=== PATIENT | female | born 1985 | race Caucasian/White ===

== ENCOUNTER 2022-11-21 14:33 | Emergency (ER) | payer SELFPAY ==
--- OUTSIDE RECORDS SUMMARY | 2022-11-21 14:36 | XMS REPORT | Continuity of Care Document ---
:1985 Author Organization [facility] t Address [address] [place] [place] [address] Care Team Providers Name Role Phone Asked, No Pcp Primary Care Physician Unavailable MERNA HYATT Attending Clinician Unavailable JOSÉ MIGUEL MÉNDEZ Attending Clinician Unavailable THEO MARQUEZ Attending Clinician Unavailable DR ANGELITA BHATTI Attending Clinician Unavailable DR ANGELITA BHATTI Admitting Clinician Unavailable Payers Payer Name Policy Type Policy Number Effective Date Expiration Date S ource 1000 [id number] 1959 00:00:00 Problems Condition Condition Condition Status Onset Resolution Last Treating Co mments Source Name Details Category Date Date Treatment Clinician Date Unspecifie Unspecifie Disease Active M ethodi d mood d mood 04-01 (affective (affective 00:00: Ho spita ) disorder ) disorder 00 l Alcohol Alcohol Disease Active Methodi use use 04-01 st disorder, disorder, 00:00: Hosp liestte severe, in severe, in 00 l controlled controlled environmen environmen t t Cocaine Cocaine Disease Active Methodi use use 04-01 disorder, disorder, 00:00: Hosp lisette moderate, moderate, 00 l dependence dependence PTSD PTSD Disease Active Methodi (post-trau (post-trau - st matic matic 00:00: Hospita stress stress 00 l disorder) disorder) Allergies, Adverse Reactions, Alerts Allergy Allergy Status Severity Reaction(s) Onset Inactive Treating Comm ents Source Name Type Date Date Clinician Mushroom Propensi Active Method i ty to 04-02 st adverse 00:00: Hospita reaction 00 l s to drug Aspirin Propensi Active "gives me Meth madhav ty to 04-[address] adverse 00:00: migraine Hospita reaction 00 headache l s to drug Azithrom Propensi Active "Makes me Met hodi ycin ty to 04-[address] adverse 00:00: sick the Hospita reaction 00 mycins" l s to drug Sulfa DA Active Unknown [facility] (Sulfona 10-25 Medical mides) 00:00: Center 00 Erythrom DA Active Unknown [facility] ycin 10-25 [facility] 00:00: Center 00 Social History Social Habit Start Date Stop Date Quantity Comments Source Gender identity [facility] Sexual orientation [facility] History of tobacco Smokes tobacco [facility] use daily Hospital History of Social 2018-11-06 2018-11-[address] function 00:00:00 00:00:00 Hospital Alcohol intake 2018-04-20 2018-04-20 Current drinker [facility] 00:00:00 00:00:00 of alcohol Hospital (finding) Tobacco use and 2018-04-01 2018-04-01 User of [facility] exposure 00:00:00 00:00:00 smokeless Hospital tobacco Sex Assigned At [birth year] [facility] 00:00:00 00:00:00 Hospital Smoking Status Start Date Stop Date Source Smokes tobacco daily 2018-04-01 00:00:00 [facility] Medications Ordered Filled Start Stop Current Ordering Indication Dosage Frequency Signature Comments Components Source Medication Medication Date Date Medication? Clinician (SIG) Name Name naltrexone Yes 50mg QD Take 50 mg M ethodi (DEPADE) 50 2-[address] mg tablet 18:47: nightly. Hosp lisette 36 l gabapentin Yes 600mg [id number] Take 600 [facility] (NEURONTIN) 2-12 [id number] mg by s t 300 mg 18:47: 3D mouth 3 Hospita capsule 36 (three) l times a day. Vital Signs Vital Name Observation Time Observation Value Comments Source Height 2021-04-30 10:42:00 162.56 CM Weight 2021-04-30 10:42:00 65.77 KG Procedures This patient has no known procedures. Plan of Care Planned Activity Planned Date Details Comments Source Future Scheduled 2022-11-21 COVID-19 VACCINE [facility] Test 08:31:20 (#1) [code = COVID-19 VACCINE (#1)] Future Scheduled 2022-11-21 Screening for [facility] Test 08:31:20 malignant neoplasm of cervix (procedure) [code = 256472481] Future Scheduled 2022-11-21 INFLUENZA VACCINE [facility] Test 08:31:20 (#1) [code = INFLUENZA VACCINE (#1)] Encounters Start End Encounter Admission Attending Care Care Encounter Source Date/Time Date/Time Type Type Clinicians Facility Department ID 2022-11-15 Inpatient TEXANA TEXANA [id number] [place] 08:48:47 [id number] [place] 2022 Inpatient TEXANA TEXANA [id number] [place] 12:20:15 [id number] [place] 2022-10-07 Inpatient TEXANA TEXANA [id number] [place] 11:33:38 [id number] [place] 2022-10-05 Inpatient TEXANA TEXANA [id number] [place] 08:50:12 [id number] [place] 2022-04-05 Outpatient [facility] [id number] [place] 14:31:[id number] [place] [address] 2022-04-05 Outpatient [facility] [id number] [place] 14:28:[id number] [place] [address] 2022-11-11 2022-11-11 Outpatient SFA SFA [id number] 11:22:07 11:22:07 [id number] F Mike 2022-08-04 2022-08-04 Emergency E BAL HYATT [facility] [id number] [facility] 10:16:00 15:26:00 MERNA 2022-04-13 2022-04-13 Outpatient DEV [facility] [id number] [place] 13:15:00 13:15:00 [facility] 2022-04-05 2022-04-05 Emergency E THEO MARQUEZ [facility] [id number] [place] 10:31:00 14:21:00 hardik dye 2021-04-30 2021-04-30 Emergency E BHATTI, ANGELITA [facility] ECC [id number] [place] 10:39:00 11:18:00 Medica l Center 2019-03-31 2019-03-31 Emergency E MHKM [facility]KM [id number] [place] 18:14:00 18:14:00 l Donato Warren [facility] 2019-01-27 2019-01-27 Emergency E MHSE MHSE [id number] 14:17:00 14:17:00 [facility] 2018-01-25 2018-01-25 Emergency [facility] [id number] [address] [place] [address] 20:11:36 20:11:36 Health 2017-11-07 2017-11-07 Emergency E ANGELITA BHATTI [facility] WWE[facility] [id number] [facility] 10:24:00 10:55:00 Medica l Center Results This patient has no known results.
--- NOTE | 2022-11-21 15:37 | RAD REPORT ---
EXAM DESCRIPTION: RAD - Knee Right 3 View - 11/21/2022 3:23 pm CLINICAL HISTORY: right knee injury COMPARISON: No comparisons FINDINGS/IMPRESSION: No acute fracture. No malalignment. No significant focal degenerative changes.
[2022-11-21] MEDS ORDERED: CYCLOBENZAPRINE 10 MG TAB ONE (15:50)
[2022-11-21] MEDS ORDERED: KETOROLAC 30 MG/ML INJ ONE (15:51)
[2022-11-21] MEDS ORDERED: FAMOTIDINE 20 MG/2 ML VIAL IV ONE (15:55)
[2022-11-21] MEDS ORDERED: MAGNES/ALUMIN/SIMET 30ML UCUP ONE (15:55)
--- NOTE | 2022-11-21 15:55 | EDPHYS ---
Physician Documentation [facility] Name: Iliana Doherty Age: 37 yrs Sex: Female : 1985 Arrival Date: 11/21/2022 Time: 14:33 Bed 2 Private MD: ED Physician Soto Cuevas HPI: 11/21 14:43 This 37 yrs old Female presents to ER via Unassigned with complaints of Knee sp4 Pain. 16:02 37-year-old female with history of prior right knee injury prior right ligamentous tear sp4 in the right knee presents with acute worsening of right knee pain. Patient is currently at [facility] rehab for alcohol use. Patient states that she was playing basketball yesterday and developed worsening right knee pain. Patient has moderate pain on ambulation. Pain is improved with rest. Historical: - Allergies: 15:10 No Known Allergies; ll1 - PMHx: 15:10 borderline BP; ll1 - PSHx: 15:10 ulnar nerve SX; Appendectomy; ll1 - Immunization history:: Adult Immunizations up to date. - Social history:: Smoking status: Patient reports the use of cigarette tobacco products, smokes one-half pack cigarettes per day. - Family history:: not pertinent. ROS: 16:02 Constitutional: Negative for fever, chills, and weight loss, MS/Extremity: Positive for sp4 right knee injury and pain, positive pain on ambulation of the right knee 16:02 All other systems are negative. Exam: 16:02 Constitutional: This is a well developed, well nourished patient who is awake, alert, sp4 and in no acute distress. Head/Face: Normocephalic, atraumatic. Eyes: Pupils equal round and reactive to light, extra-ocular motions intact. Lids and lashes normal. Conjunctiva and sclera are not injected. Cornea within normal limits. Periorbital areas with no swelling, redness, or edema. ENT: Nares patent. No nasal discharge, no septal abnormalities noted. Tympanic membranes are normal and external auditory canals are clear. Oropharynx with no redness, swelling, or masses, exudates, or evidence of obstruction, uvula midline. Mucous membranes moist. Neck: Trachea midline, no thyromegaly or masses palpated, and no cervical lymphadenopathy. Supple, full range of motion without nuchal rigidity, or vertebral point tenderness. Chest/axilla: Normal chest wall appearance and motion. Nontender with no deformity. No lesions are appreciated. Cardiovascular: Regular rate and rhythm with a normal S1 and S2. No gallops, murmurs, or rubs. Normal PMI, no JVD. No pulse deficits. Respiratory: Lungs have equal breath sounds bilaterally, clear to auscultation and percussion. No rales, rhonchi or wheezes noted. No increased work of breathing, no retractions or nasal flaring. Abdomen/GI: Soft, non-tender, with normal bowel sounds. No distension or tympany. No guarding or rebound. No evidence of tenderness throughout. Back: No spinal tenderness. No costovertebral tenderness. Skin: Warm, dry with normal turgor. Normal color with no rashes, no lesions, and no evidence of cellulitis. MS/ Extremity: Pulses equal, no cyanosis. Neurovascular intact. Mild right knee swelling, no significant effusion, positive right knee pain, positive decreased range of motion of the right knee, positive intact peripheral pulses Neuro: Awake and alert, GCS 15, oriented to person, place, time, and situation. Cranial nerves II-XII grossly intact. Motor strength 5/5 in all extremities. Sensory grossly intact. Psych: Awake, alert, with orientation to person, place and time. Behavior, mood, and affect are within normal limits Vital Signs: 15:10 BP 127 / 100; Pulse 82; Resp 16; Temp 98; Pulse Ox 100% ; Pain 7/10; ll1 16:00 BP 125 / 84; Pulse 78; Resp 18; Pulse Ox 100% on R/A; mb9 15:10 Pain Scale: Adult ll1 Procedures: 16:06 Splinting: Splint applied to right knee using knee immobilizer, applied by tech. sp4 Examined by me, post splint application: neurovascular intact, 2+ distal pulses palpable, brisk capillary refill noted, Patient tolerated well, Patient was provided crutches and crutch training. MDM: 14:59 Patient medically screened. sp4 16:02 Differential Diagnosis Right knee sprain, right muscular strain, right knee contusion, sp4 right knee fracture. Data reviewed: vital signs, nurses notes, old medical records, radiologic studies, plain films. Consideration of Admission/Observation Escalation of care including admission/observation considered. ED course: There is a right knee sprain, x-rays negative, right knee immobilizer was applied, advised 2 weeks of right knee immobilization and use of crutches. After that another right knee hinged brace for 2-week. ED course: Patient will be referred to Dr. Goodwin with orthopedic surgery for the right knee assessment in the office. 11/21 14:54 Order name: Knee Right 3 View XRAY; Complete Time: 15:48 sp4 11/21 14:55 Order name: Knee Immobilizer; Complete Time: 15:51 sp4 11/21 14:55 Order name: Crutch Training; Complete Time: 15:51 sp4 11/21 14:55 Order name: Crutches; Complete Time: 15:51 sp4 Administered Medications: 15:47 Drug: Cyclobenzaprine PO 10 mg Route: PO; mb9 15:48 Drug: Ketorolac IM 60 mg Route: IM; Site: right gluteus; mb9 Disposition Summary: 11/21/22 15:55 Discharge Ordered Location: Home sp4 Problem: new sp4 Symptoms: have improved sp4 Condition: Stable sp4 Diagnosis - Sprain of unspecified site of right knee sp4 - Acute right knee sprain, history of ligamentous tear right knee sp4 Followup: sp4 - With: Private Physician - When: 10 - 14 days - Reason: Followup: sp4 - With: Anthony Goodwin MD - When: 10 - 14 days - Reason: Recheck today's complaints Discharge Instructions: - Discharge Summary Sheet mb9 - Knee Sprain, Adult, Lobm-dy-Rvds sp4 Forms: - Work release form mb9 - Patient Portal Instructions sp4 - Leadership Thank You Letter sp4 Prescriptions: - naproxen 500 mg Oral tablet - take 1 tablet by ORAL route 3 times per day PRN pain; 30 tablet; Refills: 0, sp4 Product Selection Permitted - Cyclobenzaprine 10 mg Oral Tablet - take 1 tablet by ORAL route every 8 hours As needed; 30 tablet; Refills: 0, sp4 Product Selection Permitted Signatures: Dispatcher [employer] Lucille Gil RN RN ll1 Tosha Forrest RN RN mb9 Soto Cuevas MD MD sp4 Corrections: (The following items were deleted from the chart) 15:11 15:03 Social history: Smoking status: Patient denies any tobacco usage or history of. ll1 ll1
--- NOTE | 2022-11-21 15:55 | ER ---
Nurse's Notes [facility] Name: Iliana Doherty Age: 37 yrs Sex: Female : 1985 Arrival Date: 11/21/2022 Time: 14:33 Bed 2 Private MD: Diagnosis: Sprain of unspecified site of right knee;Acute right knee sprain, history of ligamentous tear right knee Presentation: 11/21 14:50 Ebola Screen: Patient denies travel to an Ebola-affected area in the 21 days before 1 illness onset. Initial Sepsis Screen: Does the patient meet any 2 criteria? No. Patient's initial sepsis screen is negative. Does the patient have a suspected source of infection? No. Patient's initial sepsis screen is negative. Risk Assessment: Do you want to hurt yourself or someone else? Patient reports no desire to harm self or others. 14:50 Method Of Arrival: Ambulatory [facility] 14:50 Acuity: SAEED 4 ll1 15:03 Chief complaint: Patient states: R knee pain. Coronavirus screen: Client denies travel ll out of the [place] in the last 14 days. At this time, the client does not indicate any symptoms associated with coronavirus-19. 15:11 Onset of symptoms was November 18, 2022. [facility] Historical: - Allergies: 15:10 No Known Allergies; ll1 - PMHx: 15:10 borderline BP; ll1 - PSHx: 15:10 ulnar nerve SX; Appendectomy; ll1 - Immunization history:: Adult Immunizations up to date. - Social history:: Smoking status: Patient reports the use of cigarette tobacco products, smokes one-half pack cigarettes per day. - Family history:: not pertinent. Screenin:49 [facility] ED Fall Risk Assessment (Adult) History of falling in the last 3 months, mb9 including since admission No falls in past 3 months (0 pts) Confusion or Disorientation No (0 pts) Intoxicated or Sedated No (0 pts) Impaired Gait No (0 pts) Mobility Assist Device Used No (0 pt) Altered Elimination No (0 pt) Score/Fall Risk Level 0 - 2 = Low Risk Oriented to surroundings, Maintained a safe environment, Educated pt \T\ family on fall prevention, incl call for assistance when getting out of bed. Abuse screen: Denies threats or abuse. Nutritional screening: No deficits noted. Tuberculosis screening: No symptoms or risk factors identified. Assessment: 15:48 General: Appears uncomfortable, Behavior is calm, cooperative. Pain: Complains of pain mb9 in right leg Pain currently is 8 out of 10 on a pain scale. Quality of pain is described as throbbing, Pain began suddenly, Is continuous. Neuro: Level of Consciousness is awake, alert, obeys commands, Oriented to person, place, time, situation, Appropriate for age. Cardiovascular: Patient's skin is warm and dry. Respiratory: Airway is patent Respiratory effort is even, unlabored, Respiratory pattern is regular, symmetrical. GI:. : No signs and/or symptoms were reported regarding the genitourinary system. Derm: Skin is pink, warm \T\ dry. Musculoskeletal: Range of motion: intact in all extremities. Vital Signs: 15:10 BP 127 / 100; Pulse 82; Resp 16; Temp 98; Pulse Ox 100% ; Pain 7/10; ll1 16:00 BP 125 / 84; Pulse 78; Resp 18; Pulse Ox 100% on R/A; mb9 15:10 Pain Scale: Adult ll1 ED Course: 14:35 Patient arrived in ED. ts1 14:42 Soto Cuevas MD is Attending Physician. sp4 14:50 Triage completed. ll1 14:50 Arm band placed on. ll1 15:25 Knee Right 3 View XRAY In Process Unspecified. EDMS 15:37 Tosha Forrest, AMEENA is Primary Nurse. mb9 15:49 Placed in gown. Bed in low position. Call light in reach. Side rails up X 1. Client mb9 placed on continuous cardiac and pulse oximetry monitoring. NIBP monitoring applied. 15:49 No provider procedures requiring assistance completed. Patient did not have IV access mb9 during this emergency room visit. 15:54 Anthony Goodwin MD is Referral Physician. sp4 Administered Medications: 15:47 Drug: Cyclobenzaprine PO 10 mg Route: PO; mb9 15:48 Drug: Ketorolac IM 60 mg Route: IM; Site: right gluteus; mb9 Medication: 15:49 VIS not applicable for this client. mb9 Outcome: 15:55 Discharge ordered by . sp4 16:00 Discharged to home ambulatory. mb9 16:00 Condition: stable 16:00 Discharge instructions given to patient, Instructed on discharge instructions, follow up and referral plans. Demonstrated understanding of instructions, follow-up care, medications, Prescriptions given X 2. 16:01 Patient left the ED. mb9 Signatures: Dispatcher [employer] EDMS Lucille Collier RN RN ll1 Tosha Forrest RN RN mb9 Soto Cuevas MD MD sp4 Estela Ley PAS PAS ts1 Corrections: (The following items were deleted from the chart) 15:11 15:03 Social history: Smoking status: Patient denies any tobacco usage or history of. ll1 ll1 15:11 15:10 Pulse 82bpm; Resp 16bpm; Pulse Ox 100%; Temp 98F; Pain 10, Adult; ll1 ll1
[2022-11-21 16:06] VITALS: TEMP 98; O2SAT 100
[2022-11-21 16:07] VITALS: BP 125/84
== END 2022-11-21 16:01 | disposition home or self-care (01) ==
LOC: ER 14:33
DX: S83.91XA Sprain of unspecified site of right knee, initial encounter (principal)
CPT/HCPCS: 96372; 99284